=== PATIENT | female | born 2005 | race Caucasian/White ===

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

== ENCOUNTER 2024-04-11 16:55 | Emergency (ER) | payer OTHER ==
[2024-04-11] MEDS ORDERED: HYDROCODONE/APAP 5/325 MG TAB ONE (17:33)
[2024-04-11] MEDS ORDERED: ACETAMINOPHEN 325 MG TABLET ONE (17:34)
--- NOTE | 2024-04-11 18:55 | RAD REPORT ---
EXAMINATION: Ankle Right 3 View CLINICAL INDICATION: Female, 18 years old. PAIN COMPARISON: No prior exam. FINDINGS: No acute fracture. Well-corticated ossific density at the distal fibular tip. No malalignment/dislocation. No significant focal degenerative change. Other: Soft tissue swelling is present laterally. IMPRESSION: Soft tissue swelling laterally but no acute fracture identified. A well-corticated ossific density at the tip of the fibula may be an unfused ossicle or likely remote avulsion fracture
--- NOTE | 2024-04-11 19:11 | ER ---
Nurse's Notes [facility] Name: Patience Torres Age: 18 yrs Sex: Female : 2005 Arrival Date: 04/11/2024 Time: 16:55 Bed 9 Private MD: Diagnosis: Sprain of ankle-right Presentation: 04/11 17:08 Chief complaint: Patient states: RIGHT ANKLE PAIN STATES FELL IN HOLE WHILE FISHING 30 db MIN AGO. REPORTS BREAKING SAME ANKLE 2 YEARS AGO. Coronavirus screen: Client denies travel out of the [place] in the last 14 days. At this time, the client does not indicate any symptoms associated with coronavirus-19. Ebola Screen: Patient negative for fever greater than or equal to 101.5 degrees Fahrenheit, and additional compatible Ebola Virus Disease symptoms Patient denies exposure to infectious person. Patient denies travel to an Ebola-affected area in the 21 days before illness onset. No symptoms or risks identified at this time. Initial Sepsis Screen: Does the patient meet any 2 criteria? No. Patient's initial sepsis screen is negative. Does the patient have a suspected source of infection? No. Patient's initial sepsis screen is negative. Risk Assessment: Do you want to hurt yourself or someone else? Patient reports no desire to harm self or others. Onset of symptoms was April 11, 2024 at 16:30. 17:08 Method Of Arrival: Ambulatory db 17:08 Acuity: REDD 3 db Triage Assessment: 17:10 General: Appears in no apparent distress. Behavior is calm, cooperative. Pain: db Complains of pain in anterior aspect of right ankle. Neuro: Level of Consciousness is awake, alert, obeys commands, Oriented to person, place, time, situation. Respiratory: Airway is patent Respiratory effort is even, unlabored, Respiratory pattern is regular, symmetrical. Musculoskeletal: Circulation, motion, and sensation intact. Range of motion: limited in right ankle. RATE MARKER: 17:10 LMP 03/29/2024, unknown db Historical: - Allergies: 17:10 No Known Allergies; db - PMHx: 17:10 ADD/ADHD; Anxiety; Asthma; depressive disorder; db - Immunization history:: Adult Immunizations unknown. - Infectious Disease History:: Denies. - Social history:: Smoking status: Patient denies any tobacco usage or history of. Screenin:00 [facility] ED Fall Risk Assessment (Adult) History of falling in the last 3 months, ko1 including since admission Yes- single mechanical fall (1 pt) Confusion or Disorientation No (0 pts) Intoxicated or Sedated No (0 pts) Impaired Gait No (0 pts) Mobility Assist Device Used No (0 pt) Altered Elimination No (0 pt) Score/Fall Risk Level 0 - 2 = Low Risk Oriented to surroundings, Maintained a safe environment, Educated pt \T\ family on fall prevention, incl call for assistance when getting out of bed, Assessed \T\ reinforced patient's understanding of fall precautions, Hourly rounding (assess needs \T\ fall precautionary measures) done. Abuse screen: Denies threats or abuse. Denies injuries from another. Nutritional screening: No deficits noted. Tuberculosis screening: No symptoms or risk factors identified. Assessment: 18:00 General: Appears in no apparent distress. Behavior is calm, cooperative, appropriate ko1 for age. Pain: Complains of pain in right ankle. Neuro: No deficits noted. Cardiovascular: No deficits noted. Respiratory: No deficits noted. GI: No deficits noted. : No deficits noted. No signs and/or symptoms were reported regarding the genitourinary system. EENT: No deficits noted. No signs and/or symptoms were reported regarding the EENT system. Derm: No deficits noted. No signs and/or symptoms reported regarding the dermatologic system. Musculoskeletal: Circulation, motion, and sensation intact. Swelling present in right ankle Reports pain in right ankle and anterior aspect of right ankle. 19:39 Reassessment: Patient appears in no apparent distress at this time. Patient and/or kj2 family updated on plan of care and expected duration. Pain level reassessed. Patient is alert, oriented x 3, equal unlabored respirations, skin warm/dry/pink. Vital Signs: 17:08 BP 122 / 76; Pulse 98; Resp 18; Temp 98.4; Pulse Ox 98% ; Weight 68.04 kg; Height 5 ft. db 4 in. ; 19:37 BP 124 / 72; Pulse 70; Resp 18; Temp 97.9; Pulse Ox 100% on R/A; kj2 17:08 Body Mass Index 25.75 (68.04 kg, 162.56 cm) - Percentile 82.6 % db ED Course: 17:00 Patient arrived in ED. im 17:01 Sae Camejo PA is PHCP. cp 17:01 Talon Deleon MD is Attending Physician. cp 17:10 Triage completed. db 17:10 Arm band placed on. db 17:36 Lianna Armstrong, RN is Primary Nurse. ko1 18:00 Patient has correct armband on for positive identification. Bed in low position. Call ko1 light in reach. Side rails up X 1. Adult w/ patient. Provided Education on: meds, xxray. Door closed. Noise minimized. Lights dimmed. Pillow given. Ice pack to injury. 18:43 XRAY Ankle RIGHT 3 view In Process Unspecified. EDMS 19:10 Chadwick Bustamante MD is Referral Physician. cp 19:38 No provider procedures requiring assistance completed. Patient did not have IV access kj2 during this emergency room visit. Administered Medications: 17:45 Drug: Acetaminophen PO 650 mg PO once Route: PO; ko1 18:15 Follow up: Response: No adverse reaction ko1 17:45 Drug: HYDROcodone-acetaminophen PO 5 mg-325 mg 1 tabs PO once Route: PO; ko1 18:15 Follow up: Response: No adverse reaction ko1 Medication: 18:00 VIS not applicable for this client. ko1 Outcome: 19:10 Discharge ordered by MD. cp 19:38 Discharged to home with crutches, kj2 19:38 Condition: stable 19:38 Discharge instructions given to patient, Instructed on discharge instructions, follow up and referral plans. medication usage, Demonstrated understanding of instructions, follow-up care, medications, Prescriptions given X 1, 19:39 Patient left the ED. kj2 Signatures: Dispatcher [employer] EDNM Sae Camejo PA PA cp Lianna Armstrong, RN RN ko1 Bere Grissom, RN RN Katherine Degroot Genie Méndez RN RN kj2
--- NOTE | 2024-04-11 19:11 | EDPHYS ---
Physician Documentation [facility] Name: Patience Torres Age: 18 yrs Sex: Female : 2005 Arrival Date: 04/11/2024 Time: 16:55 Bed 9 Private MD: ED Physician Talon Deleon HPI: 04/11 17:15 This 18 yrs old Female presents to ER via Ambulatory with complaints of Ankle Injury. cp 17:15 The patient presents with an injury, pain, that is acute. The complaints affect the cp right ankle. Onset: The symptoms/episode began/occurred today. Context: resulted from stepping in hole, The patient can partially bear weight on the affected extremity. must have assistance. Associated signs and symptoms: The patient has no apparent associated signs or symptoms. 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 - Infectious Disease History:: Denies. - Social history:: Smoking status: Patient denies any tobacco usage or history of. ROS: 17:20 MS/extremity: Positive for injury or acute deformity, of the right ankle, cp Exam: 17:25 Constitutional: The patient appears in no acute distress, alert, awake, well developed, cp well nourished, uncomfortable, 17:25 Head/Face: Normocephalic, atraumatic. cp 17:25 Musculoskeletal/extremity: Extremities: noted in the lateral malleolus of right ankle: swelling, tenderness, There is no evidence of decreased ROM, deformity, ROM: limited active range of motion due to pain, in the right ankle, Perfusion: the extremity is normally perfused throughout, Sensation intact. Achilles tendon intact, no pain to palpation noted base of fifth right metatarsal and/or proximal right fibula. Vital Signs: 17:08 BP 122 / 76; Pulse 98; Resp 18; Temp 98.4; Pulse Ox 98% ; Weight 68.04 kg; Height 5 ft. db 4 in. ; 19:37 BP 124 / 72; Pulse 70; Resp 18; Temp 97.9; Pulse Ox 100% on R/A; kj2 17:08 Body Mass Index 25.75 (68.04 kg, 162.56 cm) - Percentile 82.6 % db MDM: 17:09 Medical Screening Exam initiated cp 19:10 Data reviewed: vital signs, nurses notes, radiologic studies, plain films, and as a cp result, I will discharge patient. 19:10 Differential diagnosis: fracture, sprain, dislocation, foot fracture, Achilles tendon cp rupture. I considered the following discharge prescriptions or medication management in the emergency department Medications were administered in the Emergency Department. See MAR. Independent interpretation of the following test(s) in the Emergency Department X-Ray: My interpretation is images right ankle negative for fracture. Counseling: I had a detailed discussion with the patient and/or guardian regarding the historical points, exam findings, and any diagnostic results supporting the discharge/admit diagnosis, radiology results, to return to the emergency department if symptoms worsen or persist or if there are any questions or concerns that arise at home. Response to treatment: the patient's symptoms have mildly improved after treatment, and as a result, I will discharge patient. 04/11 17:12 Order name: XRAY Ankle RIGHT 3 view; Complete Time: 19:09 cp 04/11 19:09 Interpretation: Report reviewed. cp 04/11 17:12 Order name: Ice pack; Complete Time: 17:45 cp 04/11 19:09 Order name: Crutches; Complete Time: 19:37 cp 04/11 19:09 Order name: Ankle Splint: Aircast; Complete Time: 19:37 cp 04/11 19:09 Order name: Frank wrap-joint; Complete Time: 19:37 cp Administered Medications: 17:45 Drug: Acetaminophen PO 650 mg PO once Route: PO; ko1 18:15 Follow up: Response: No adverse reaction ko1 17:45 Drug: HYDROcodone-acetaminophen PO 5 mg-325 mg 1 tabs PO once Route: PO; ko1 18:15 Follow up: Response: No adverse reaction ko1 Disposition: 04/12 17:11 Chart complete. cp 17:21 Co-signature as Attending Physician, Talon Deleon MD I reviewed the patient's care rn provided by the Advanced Practice Provider and agree with the diagnosis and treatment plan. Disposition Summary: 04/11/24 19:10 Discharge Ordered Notes: Location: Home cp Problem: new cp Symptoms: have improved cp Condition: Stable cp Diagnosis - Sprain of ankle - right cp Followup: cp - With: Chadwick Bustamante MD - When: 1 week - Reason: pain continues Discharge Instructions: - Discharge Summary Sheet cp - Ankle Sprain cp - Ankle Exercises cp Forms: - Medication Reconciliation Form cp - Antibiotic Education cp - Prescription Opioid Use cp - Patient Portal Instructions cp - Leadership Thank You Letter cp Prescriptions: - Anaprox DS 550 mg Oral Tablet - take 1 tablet ORAL route every 12 hours As needed; 20 tablet; Refills: 0, cp Product Selection Permitted Signatures: Dispatcher [employer] Talon Redding MD MD rn Page, Corey, PA PA cp Lianna Armstrong RN RN ko1 Bere Grissom RN RN db
[2024-04-11 23:27] VITALS: BP 124/72; TEMP 97.9; O2SAT 100
== END 2024-04-11 19:39 | disposition home or self-care (01) ==
LOC: ER 16:55
DX: S93.401A Sprain of unspecified ligament of right ankle, initial encounter (principal)
CPT/HCPCS: 99283

== ENCOUNTER 2024-11-08 10:07 | Emergency (ER) | payer OTHER ==
[2024-11-08] MEDS ORDERED: LORazepam 2 MG/ML VIAL ONE (10:23)
--- NOTE | 2024-11-08 10:54 | RAD REPORT ---
EXAM: CT brain without contrast HISTORY: Head injury status post trauma COMPARISON: 2017 TECHNIQUE: Multiple contiguous axial images were obtained and a CT of the brain without contrast.. Sagittal and coronal reconstruction performed. Automated exposure control, adjustment of the mA and/or kV according to patient size, and/or iterative reconstruction. Unless otherwise specified, incidental f indings do not require dedicated imaging follow-up FINDINGS: An intracranial bleed is not seen Ventricles are normal caliber No extra-axial fluid collection noted No significant hypodensity within the brain No fluid within the visualized sinuses or mastoids noted. IMPRESSION: No acute intracranial abnormality noted. If the patient continues to have symptoms to suggest an acute intracranial abnormality then MRI of th e brain would be recommended.
--- NOTE | 2024-11-08 10:57 | RAD REPORT ---
EXAMINATION: CT MAXILLOFACIAL WITHOUT CONTRAST CLINICAL INDICATION: Facial pain. Status post trauma TECHNIQUE: Axial images were obtained through the facial bones and orbits without intravenous contras t. Sagittal and coronal reconstructions were created from the data. One or more of the following dose reduction techniques were used: Automated exposure control, adjustment of the mA and/or kV accor ding to patient size, and/or iterative reconstruction. Unless otherwise specified, incidental findings do not require dedicated imaging follow-up. COMPARISON: No prior exam. FINDINGS: No fracture is seen No TMJ dislocation. The globes are normal size and density. No fluid within the sinuses/mastoids IMPRESSION: No fracture seen
--- NOTE | 2024-11-08 10:59 | RAD REPORT ---
Exam:Foot Left 3 View CLINICAL HISTORY: Left foot pain FINDINGS: No fracture or dislocation seen
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
[2024-11-08] MEDS ORDERED: IBUPROFEN 400 MG TAB ONE (11:05)
[2024-11-08 11:42] VITALS: TEMP 98.1; O2SAT 100
[2024-11-08 11:44] VITALS: BP 112/78
== END 2024-11-08 11:25 | disposition home or self-care (01) ==
LOC: ER 10:07
DX: S90.32XA Contusion of left foot, initial encounter (principal); S00.83XA Contusion of other part of head, initial encounter; Y04.8XXA Assault by other bodily force, initial encounter
CPT/HCPCS: 70450; 70486; 76377; 96372; 99284